=== PATIENT | male | born 1990 | race Caucasian/White ===

== ENCOUNTER 2017-07-06 12:09 | Emergency (ER) | payer OTHER ==
[~2017-07-06] VITALS: Ht 177.8 cm; Wt 90.9 kg
[2017-07-06 12:26] VITALS: BP 153/82; PULSE 90; RESP 14; O2SAT 98
--- NOTE | 2017-07-06 13:19 | ED.REPORT ---
HPI-General Illness Date of Service Jul 06, 2017 ED Provider: Bree Caruso History of Present Illness: facial swelling this am. . no primary care. no dental care. minimal pain. Just concerned about the swelling Nursing Notes Stated Complaint: DENTAL PAIN Chief Complaint: Dental Nursing Notes Reviewed: Yes Allergies: Coded Allergies: No Known Allergies (Verified , 07/06/17) General Time Seen by MD: 13:18 Chief Complaint Other (facial swelling) Hx Obtained From: Patient Sudden in Onset?: No Past Medical History Past Medical History Reports: Asthma Past Surgical History denies Smoking History Current Every Day Smoker (1/2 pack a day 8 years) Social History Alcohol Use: Denies alcohol use Drug Use: THC Occupation lives with friend, no work or school at this time 07/06/2017 Ambulatory Status Independent Review of Systems Full Review of Systems Constitutional: Denies: Chills, Fatigue Ears / Nose / Throat: Denies: Ear drainage left, Ear drainage right Cardiovascular: Denies: Chest pain Male: Denies Dysuria Hematologic: Denies Adenopathy Psychiatric: Denies: Agitation Physical Exam Vital Signs Vital Signs Date Time Temp Pulse Resp B/P Pulse Ox O2 Delivery O2 Flow Rate FiO2 07/06/17 12:26 36.3 90 14 153/82 98 Room Air Initial VS: Reviewed, Vital signs normal General/Constitutional: Well-developed, Well-nourished Head / Eyes: Atraumatic, Normocephalic, PERRL ENT: Mucous membranes moist, Conjunctiva normal, No scleral icterus Neck: Supple, Non-tender, Full range of motion Respiratory: Breath sounds normal, Clear to auscultation, No respiratory distress Cardiovascular: Regular rate & rhythm, Heart sounds normal, Intact distal pulses Abdomen / GI: Soft, Non-tender, No guarding, No rebound, No distention Back: No CVA tenderness Lymphatic: No lymphadenopathy Extremities: Vascular intact, Neuro intact, No swelling, No tenderness Skin: Warm, Dry, No cyanosis Neurologic: Alert, Oriented, Nonfocal Psychiatric: Mood/affect normal, Behavior normal, Normal thought content General/Constitutional: Awake, Alert, No acute distress, Well appearing, Well developed Head / Eyes: Atraumatic, Normocephalic, PERRL, EOMI mild swelling on left lower check area. Oral exam indicates extensive decay with palpable swelling in buccal space. no trismus, able to open mouth 2 fingers wide. 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 No sign of airway comprise or paraphengeal abscess. Provided resources and rx of antibiotics Discharge & Departure Primary Impression: Dental abscess Disposition: Home Patient Instructions: Dental Abscess (ED) Additional Instructions: Need to see a dentist. Many of your teeth have extensive decay. Start antibiotics amoxicillin 500 mg 3 times a day for 10 days. Use ibuprofen 800 mg 3 times a day. Please use the resources to seek dental care. [facility] is open on Wednesday. Please call for appointment availability. Referrals[facility] for [facility]: Arun Muñiz MD Attending Statement I saw the patient in conjunction with the FIELD SERVICES ANALYST. I agree with the plan and findings as documented above. In brief, 27M presenting to the ED for evaluation of dental pain. Well appearing , no acute distress. Nonlabored respirations. Good peripheral perfusion. RRR. No indication of systemic infection. Given reassuring exam and history, plan discharge home w/ careful return precautions, close outpatient follow up as per above. copies to: OTHER,PHYSICIAN Arun Muñiz MD Jul 06, 2017 13:19 Bree Caruso Jul 06, 2017 13:24
== END 2017-07-06 13:37 | disposition home or self-care (01) ==
LOC: SED 12:09
DX: K04.7 Periapical abscess without sinus (principal); J45.909 Unspecified asthma, uncomplicated; F17.200 Nicotine dependence, unspecified, uncomplicated